=== PATIENT | female | born 1945 | race Caucasian/White ===

== ENCOUNTER 2024-02-02 10:25 | Emergency (ER) | payer MEDICARE ==
[~2024-02-02] VITALS: Ht 162.6 cm; Wt 75.0 kg
[2024-02-02 10:29] VITALS: O2SAT 98
[2024-02-02 10:43] VITALS: BP 132/70; PULSE 71; RESP 16; TEMP 36.55848; O2SAT 98
[2024-02-02] MEDS: TETANUS, DIPHTHERIA, PERTUSSIS VAC/PF 0.5ML (>10YR OLD) IM ONE (11:30)
[2024-02-02] MEDS ORDERED: ACET-2708 PO (13:13)
== END 2024-02-02 13:30 | disposition home or self-care (01) ==
LOC: ER 10:39
DX: S62.502A Fracture of unspecified phalanx of left thumb, initial encounter for closed fracture (principal); W18.39XA Other fall on same level, initial encounter; Y93.89 Activity, other specified; Y92.89 Other specified places as the place of occurrence of the external cause; Y99.8 Other external cause status
CPT/HCPCS: 73140; 90471; 90715; 99283